=== PATIENT | female | born 1995 | race African-American/Black ===

== ENCOUNTER 2019-11-06 16:23 | Emergency (ER) | payer OTHER ==
[~2019-11-06] VITALS: Ht 167.6 cm; Wt 81.7 kg
[~2019-11-06 16:23] MED LIST: BIRTH CONTROL; VEETIDS 250MG250 M1 PO
[2019-11-06] MEDS ORDERED: HYDROCODON-ACE1 EAC7 PO (18:08)
[2019-11-06 18:21] VITALS: BP 110/71
== END 2019-11-06 18:36 | disposition home or self-care (01) ==
LOC: ER 16:23
DX: S82.51XA Displaced fracture of medial malleolus of right tibia, initial encounter for closed fracture (principal); M25.474 Effusion, right foot; Z88.8 Allergy status to other drugs, medicaments and biological substances; X50.1XXA Overexertion from prolonged static or awkward postures, initial encounter; Y93.89 Activity, other specified; Y92.89 Other specified places as the place of occurrence of the external cause; Y99.8 Other external cause status